=== PATIENT | female | born 1990 | race Caucasian/White ===

== ENCOUNTER 2018-11-18 19:53 | Emergency (ER) | payer MEDICAID ==
[~2018-11-18] VITALS: Ht 160 cm; Wt 150.0 kg
[2018-11-18] MEDS ORDERED: ALBU8.5H8 IH (20:29)
[2018-11-18] MEDS ORDERED: ATOR20TA86 PO (20:29)
[2018-11-18] MEDS ORDERED: CIPROFLOXACIN HCL 0.3% 2.5 ML OPHTHALMIC SOLUTION OD ONE (21:45)
[2018-11-18] MEDS ORDERED: DEXAMETHASONE 0.1% 5 ML OPHTHALMIC SOLUTION OD ONE (21:45)
[2018-11-18] MEDS ORDERED: ALBUTEROL SULFATE HFA 90 MCG/PUFF 8 GM INHALER IH ONE (22:00)
[2018-11-18] MEDS ORDERED: CETIRIZINE HCL 10 MG TABLET PO ONE (22:00)
[2018-11-18] MEDS ORDERED: PredniSONE 20 MG TABLET PO ONE (22:00)
[2018-11-18] MEDS ORDERED: BENZONATATE 100 MG CAPSULE PO ONE (22:00)
[2018-11-18 22:14] VITALS: BP 134/80
== END 2018-11-18 22:23 | disposition home or self-care (01) ==
LOC: EMS 19:55
DX: J45.909 Unspecified asthma, uncomplicated (principal); E78.00 Pure hypercholesterolemia, unspecified; G56.00 Carpal tunnel syndrome, unspecified upper limb; Z79.899 Other long term (current) drug therapy; Z88.8 Allergy status to other drugs, medicaments and biological substances; Z91.018 Allergy to other foods
CPT/HCPCS: 94640; 99284; J7512; J3535

== ENCOUNTER 2018-12-17 22:17 | Emergency (ER) | payer MEDICAID ==
[~2018-12-17] VITALS: Ht 165.1 cm; Wt 140.9 kg
[~2018-12-17 22:17] MED LIST: ALBU8.5H8 IH; ATOR20TA86 PO
[2018-12-17 23:44] VITALS: BP 133/78
[2018-12-17] MEDS ORDERED: IBUPROFEN 600 MG TABLET PO ONE (23:45)
== END 2018-12-18 00:18 | disposition home or self-care (01) ==
LOC: EMS 22:18
DX: S80.02XA Contusion of left knee, initial encounter (principal); E78.00 Pure hypercholesterolemia, unspecified; F41.9 Anxiety disorder, unspecified; J45.909 Unspecified asthma, uncomplicated; Z88.8 Allergy status to other drugs, medicaments and biological substances; Z77.22 Contact with and (suspected) exposure to environmental tobacco smoke (acute) (chronic); W18.39XA Other fall on same level, initial encounter; Y93.89 Activity, other specified; Y92.89 Other specified places as the place of occurrence of the external cause; Y99.8 Other external cause status